=== PATIENT | male | born 1985 | race Caucasian/White ===

== ENCOUNTER 2016-08-09 19:36 | Emergency (ER) | payer SELFPAY ==
[~2016-08-09] VITALS: Ht 177.8 cm; Wt 83.9 kg
[2016-08-09 20:31] VITALS: BP 138/78
== END 2016-08-09 20:31 | disposition home or self-care (01) ==
LOC: ED 19:36
DX: J36 Peritonsillar abscess (principal)
CPT/HCPCS: J1100; J2001; J3490